=== PATIENT | female | born 1950 | race Caucasian/White ===

== ENCOUNTER 2024-11-11 01:08 | Inpatient (IN) | payer MEDICARE ==
[~2024-11-11] VITALS: Ht 154.4 cm; Wt 90.9 kg
[2024-11-11 02:11] LABS: BASOPHILS % 0.2 % (0.0-2.0); EOSINOPHILS % 1.2 % (0.0-5.0); HEMOGLOBIN. 13.3 g/dL (12.0-16.0); LYMPHOCYTES % 19.7 % (20.0-50.0); MEAN CORPUSCULAR HEMOGLOBIN 31.2 pg (28.0-32.0); MEAN CORPUSCULAR HGB CONC 34.1 g/dL (31.0-37.0); MEAN CORPUSCULAR VOLUME 91.5 fL (81.0-99.0); MEAN PLATELET VOLUME 8.6 fl (7.4-10.4); MONOCYTES % 5.7 % (2.0-8.0); NEUTROPHILS % 73.2 % (40.0-76.0); PLATELET 246 x1000/uL (130-400); RED BLOOD CELL COUNT 4.26 mill/uL (4.2-5.4); RED CELL DISTRIBUTION WIDTH 12.8 % (11.6-14.6); WHITE BLOOD COUNT 10.2 x1000/uL (4.5-11.0)
[2024-11-11 02:16] LABS: CARBON DIOXIDE 27 mEq/L (21-32); CHLORIDE 94 mEq/L (98-107); POTASSIUM 4.5 mEq/L (3.5-5.1); SODIUM 128 mEq/L (136-145)
[2024-11-11] MEDS: SODIUM CHLORIDE 0.9% 1,000 ML IV ONE (02:21)
[2024-11-11 02:22] LABS: CREATININE 1.1 mg/dL (0.6-1.0); GLUCOSE 134 mg/dL (70-105); UREA NITROGEN BLOOD 17 mg/dL (9-23)
[2024-11-11 02:33] LABS: TROPONIN I HIGH SENSITIVITY 583 ng/L (3.0-34)
[2024-11-11] MEDS: IOHEXOL-300 100 ML BOTTLE ONE (04:07)
[2024-11-11] MEDS ORDERED: IPRATROPIUM/ALBUTEROL 0.5-3(2.5)MG/3ML NEB HHN PRN (07:00)
[2024-11-11] MEDS ORDERED: DOCUSATE SODIUM 100MG CAPSULE PO PRN (07:00)
[2024-11-11] MEDS ORDERED: GADOTERATE MEGLUMINE 5 MMOL/10 ML VIAL IV ONE (09:19)
[2024-11-11 10:00] VITALS: BP 147/63; PULSE 63; RESP 19; TEMP 36.4; O2SAT 91
[2024-11-11 11:00] VITALS: BP 147/63; PULSE 63; RESP 19; TEMP 36.4
[2024-11-11 12:00] VITALS: BP 119/68; PULSE 64; RESP 12; TEMP 35.8; O2SAT 93
[2024-11-11] MEDS ORDERED: METF-416 MT (12:38)
[2024-11-11] MEDS: ENOXAPARIN 40MG/0.4ML SYR SUBCUT SCH (14:09)
[2024-11-11] MEDS: ASPIRIN 81MG TABLET PO SCH (14:10)
[2024-11-11] MEDS ORDERED: ASPI-1497 MT (14:13)
[2024-11-11 16:00] VITALS: BP 129/55; PULSE 61; RESP 18; TEMP 36.4; O2SAT 97
[2024-11-11 16:15] LABS: TROPONIN I HIGH SENSITIVITY 563 ng/L (3.0-34)
[2024-11-11] MEDS ORDERED: IOHEXOL-300 100 ML BOTTLE ONE (16:44)
[2024-11-11 20:00] VITALS: BP 144/78; PULSE 75; RESP 22; TEMP 36.1; O2SAT 97
[2024-11-11] MEDS: ATORVASTATIN CALCIUM 40MG TABLET PO SCH (21:02)
[2024-11-12] VITALS (7 sets, daily range): BP systolic 125–149; BP diastolic 46–79; PULSE 63–78; RESP 14–22; TEMP 35.9–36.7; O2SAT 94–100
[2024-11-12 00:42] LABS: TROPONIN I HIGH SENSITIVITY 630 ng/L (3.0-34)
[2024-11-12 21:16] LABS: BASOPHILS % 0.3 % (0.0-2.0); HEMATOCRIT. 36.7 % (36.0-48.0); HEMOGLOBIN. 13.1 g/dL (12.0-16.0); LYMPHOCYTES % 16.3 % (20.0-50.0); MEAN CORPUSCULAR HEMOGLOBIN 32.1 pg (28.0-32.0); MEAN CORPUSCULAR HGB CONC 35.6 g/dL (31.0-37.0); MEAN CORPUSCULAR VOLUME 90.2 fL (81.0-99.0); MEAN PLATELET VOLUME 8.1 fl (7.4-10.4); MONOCYTES % 5.8 % (2.0-8.0); NEUTROPHILS % 76.6 % (40.0-76.0); PLATELET 239 x1000/uL (130-400); RED BLOOD CELL COUNT 4.07 mill/uL (4.2-5.4); RED CELL DISTRIBUTION WIDTH 12.7 % (11.6-14.6); WHITE BLOOD COUNT 10.3 x1000/uL (4.5-11.0)
[2024-11-12] MEDS: INSULIN LISPRO 100 UNITS/ML SUBCUT SCH (21:17)
[2024-11-12] MEDS: BLOOD SUGAR DIAGNOSTIC STRIP TEST SCH (21:18)
[2024-11-12 21:30] LABS: CALCIUM 8.7 mg/dL (8.7-10.4)
[2024-11-13] VITALS (7 sets, daily range): BP systolic 132–155; BP diastolic 54–75; PULSE 62–76; RESP 18–22; TEMP 35.8–36.8; O2SAT 94–99
[2024-11-13 01:02] LABS: CLARITY URINE CLEAR (CLEAR); COLOR URINE YELLOW (YELLOW); GLUCOSE URINE NEGATIVE (NEGATIVE); KETONES URINE TRACE (NEGATIVE); LEUKOCYTE ESTERASE URINE TRACE (NEGATIVE); NITRITE URINE NEGATIVE (NEGATIVE); OCCULT BLOOD URINE NEGATIVE (NEGATIVE); PH URINE 6.5 (4.5-8.0); PROTEIN URINE TRACE (NEGATIVE); UROBILINOGEN URINE 0.2 E.U./dL (0.2-1.0)
[2024-11-13 01:27] LABS: BACTERIA URINE TRACE; RBC URINE NONE SEEN /hpf (0-2); SQUAMOUS EPITHELIAL CELL URINE 2+ /lpf (RARE/1+); WBC URINE 0-2 /hpf (0-2)
[2024-11-13] MEDS ORDERED: IOHEXOL-350 100 ML BOTTLE ONE (02:19)
[2024-11-13] MEDS: SODIUM CHLORIDE 0.9% 1,000 ML IV SCH (16:51)
[2024-11-13] MEDS: IPRATROPIUM/ALBUTEROL 0.5-3(2.5)MG/3ML NEB HHN SCH (21:54)
[2024-11-13] MEDS: BENZONATATE 200MG CAPSULE PO PRN (22:43)
[2024-11-14] MEDS: ACETAMINOPHEN 325MG TABLET PO PRN (06:35)
[2024-11-14 08:00] VITALS: BP 145/57; PULSE 68; RESP 18; TEMP 36.2; O2SAT 91
[2024-11-14] MEDS ORDERED: BENZONATATE 200MG CAPSULE PO PRN (09:00)
[2024-11-14] MEDS ORDERED: LIP40 PO (09:35)
[2024-11-14 10:50] VITALS: PULSE 65; RESP 18
[2024-11-14 12:00] VITALS: BP 147/62; PULSE 67; RESP 18; TEMP 36.5; O2SAT 93
[2024-11-14 13:10] LABS: CALCIUM 8.5 mg/dL (8.7-10.4)
[2024-11-14 14:08] VITALS: PULSE 67; RESP 19; O2SAT 96
[2024-11-14 14:57] VITALS: BP 147/62; PULSE 67; TEMP 97.7; O2SAT 98
== END 2024-11-14 16:30 | disposition home or self-care (01) | DRG 65 ==
LOC: ER 01:08 → 6WST 03:11 → ENRESERV 06:47
PROVIDERS: ADMIT Internal Medicine Pulmonary Disease; ATTEND Internal Medicine Pulmonary Disease
DX: I63.9 Cerebral infarction, unspecified (principal); C78.1 Secondary malignant neoplasm of mediastinum; I72.5 Aneurysm of other precerebral arteries; I10 Essential (primary) hypertension; J44.9 Chronic obstructive pulmonary disease, unspecified; E11.9 Type 2 diabetes mellitus without complications; I67.1 Cerebral aneurysm, nonruptured; F17.210 Nicotine dependence, cigarettes, uncomplicated; R59.0 Localized enlarged lymph nodes; Z71.6 Tobacco abuse counseling
CPT/HCPCS: 36415; 70491; 70496; 70498; 70553; 71045; 71260; 80048; 80061; 81003; 82962; 83036; 83880; 84484; 85025; 93005; 93306; 94070; 94640; 94760; 97161; 99291; A9577; J1650; J1815; J7030; Q9967